=== PATIENT | male | born 1970 | race Caucasian/White ===

== ENCOUNTER 2019-09-02 08:10 | Outpatient (RCR) | payer BC, OTHER ==
[~2019-09-02 08:10] MED LIST: CEPH-507 PO; CLR500T; LOPE2CAP29; OXYC1TAB87 PO; TMSL.4C PO; [UNRECOGNIZED DRUG - OTHER]
== END 2019-12-01 | disposition home or self-care (01) ==
LOC: CARD 08:10
PROVIDERS: ATTEND Physician Assistant
DX: I10 Essential (primary) hypertension (principal); E66.9 Obesity, unspecified; R00.1 Bradycardia, unspecified; R42 Dizziness and giddiness
CPT/HCPCS: 93225; 93226

== ENCOUNTER → 2019-09-08 | Outpatient (CLI) | payer BC, OTHER ==
[~2019-09-08] MED LIST changes: +TAMS0.4C98 PO; -TMSL.4C PO
[2019-09-08 16:44] VITALS: BP 137/88
--- NOTE | 2019-09-08 16:44 | Cardiology Stress Test Report ---
Stress Test Report Date of Procedure/Referring: Date of Procedure: Sep 08, 2019 PCP Leda Rider Admitting Physician Sandip Lagunas DO Baseline Heart Rate: 50 Baseline Blood Pressure: Blood Pressure Systolic: 137 Blood Pressure Diastolic: 88 Baseline EKG: Baseline EKG: normal sinus rhythm Summary/Conclusion: Summary: In summary, the patient started exercising with a baseline heart rate, blood pressure and EKG mentioned above Patient was able to exercise for a total of 9 minutes on Teja protocol, 10.5 METs Maximum heart rate 158 Maximum blood pressure 191/65 Stress EKG Minimal nondiagnostic changes Recovery EKG Return to baseline Conclusion: 1. Good exercise tolerance for a total of 9 minutes on Teja protocol, 10.5 METs, achieving 90 percent of maximum expected heart rate 2. Minimal nondiagnostic EKG changes with exercise returned to baseline during recovery 3. No arrhythmia was noted ALAYNA MORAN MD Sep 08, 2019 16:44 POS
== END ==
LOC: CARD 08:54
PROVIDERS: ATTEND Physician Assistant
DX: I10 Essential (primary) hypertension (principal); E66.9 Obesity, unspecified; R00.1 Bradycardia, unspecified; R42 Dizziness and giddiness
CPT/HCPCS: 93017; 93306